=== PATIENT | female | born 1985 | race Caucasian/White ===

== ENCOUNTER 2016-07-29 16:51 | Inpatient (IN) | payer OTHER ==
[2016-07-29] VITALS (12 sets, daily range): BP systolic 115–137; BP diastolic 70–93; PULSE 63–98; RESP 18; TEMP 97.4–97.8
[~2016-07-29 16:51] MED LIST: DIPHTH/TETANUS/ACEL PERTUSSIS (BOOSTER) 0.5 ML VIAL/PFS IM ONE; DOCO200C PO; MEASLES, MUMPS, RUBELLA VACCINE 0.5 ML VIAL SQ ONE
--- NOTE | 2016-07-29 17:54 | PD ---
HPI Chief Complaint Contractions Date Seen: July 29, 2016 Travel History International Travel<30 Days: No Contact w/Intl Traveler<30Days: No Known Affected Area: No History of Present Illness HPI Patient is 30-year-old white female at [address] Campoverde's who is here for contractions. She saw Dr. Campoverde in the office earlier today was checked and said she was 2 cm. Denies bleeding or ruptured membranes. Heart rate tracing is reactive and she is doug of 2-3 minutes that she says are quite painful. Para: 1 : 2 History Obstetric History Obstetric History One vaginal delivery Social History Alcohol Use: No Tobacco Use: No Substance Abuse: No Allergies-Medications (Allergen,Severity, Reaction): Coded Allergies: No Known Allergies (Unverified , 03/07/13) Home Meds Reported Medications Docosahexaenoic Acid ( Dha)200 Mg [id number] Mg PO 03/07/13 Review of Systems General / Constitutional: No: Fever, Weight Gain, Chills, Other Eyes: No: Diploplia, Blurred Vision, Visual changes, Pain, Photophobia HENT: No: Headaches, Vertigo, Lightheadedness Cardiovascular: No: Irregular Rhythm, Chest Pain or Discomfort, Palpitations, Tachycardia, Syncope, Varicosities, Edema, Cyanosis Respiratory: No: Cough, Short of Breath, Other Gastrointestinal: No: Nausea, Vomiting, Diarrhea Genitourinary: No: Decreased Urinary Output, Oliguria Musculoskeletal: No: Limited ROM, Weakness, Cramping, Edema, Pain Skin: No Rash, No Itching, No Dryness, No Lumps, No Change in Pigmentation, No Change in Nails, No Alopecia, No Lesions Neurologic: No: Weakness, Dizziness, Syncope, Focal Abnormalities, Coordination Problem, Headache, Slurred Speech, Seizures Psychiatric: No: Depression, Suicidal Ideations, Homicidal Ideation Endocrine: No: Heat Intolerance, Cold Intolerance, Polydipsia, Polyuria, Other Physical Exam Narrative GENERAL: Well-nourished, well-developed patient. SKIN: Warm and dry. HEAD: Normocephalic and atraumatic. EYES: No scleral icterus. No injection or drainage. ENT: No nasal drainage noted. Mucous membranes pink. Airway patent. NECK: Supple, trachea midline. No JVD. CARDIOVASCULAR: Regular rate and rhythm without murmurs, gallops, or rubs. RESPIRATORY: Breath sounds equal bilaterally. No accessory muscle use. BREASTS: Bilateral exam showed no masses , no retractions, no nipple discharge. ABDOMEN/GI: Abdomen soft, non-tender, bowel sounds present, no rebound, no guarding Gravid to [-39] weeks size Fundal Height: [39-] GENITOURINARY: External Genitalia: intact and normal in appearance BUS glands: [-] Cervix: [-] Dilatation: [4-] Effacement: [-80] Station: [-1] Presentation: [vtx-] Membranes: [intact ] Uterine Contractions: [q 2 min-] FHT's: Category: [1-] Baseline: [144-] Reactive: [-yes] Variability: [-mod] Decels: [none-] EXTREMITIES: No cyanosis or edema. BACK: Nontender without obvious deformity. No CVA tenderness. NEUROLOGICAL: Awake and alert. Motor and sensory grossly within normal limits. Five out of 5 muscle strength in all muscle groups. Normal speech. MDM Interpretation(s) This patient is 30-year-old white female at 39 weeks presents complaining of contractions. She was checked in the office earlier today was 2 cm. She is now 4 cm 80% and head is low at -1 cervix is very posterior this time. heart rate tracing is reactive and she is doug every 2-3 minutes with pain. Plan Patient is in early labor at this time will admit for labor management. We'll discuss with Dr. Campoverde is evaluation advisor for the [facility] Diagnosis Diagnosis: Primary Impression: Uterine contractions during Condition: Stable Ez Yang II, MD July 29, 2016 17:54
[2016-07-29] MEDS ORDERED: LACTATED RINGER'S 1000 ML INJ 1,000 ML IV PRN (17:56)
[2016-07-29] MEDS ORDERED: LACTATED RINGER'S 1000 ML INJ 1,000 ML IV SCH (17:56)
--- NOTE | 2016-07-29 17:59 | HHI.HP ---
History & Physical H&P Patient Name: Dianna Ann Unit Number: [id number] Date of : 1985 Patient Status: Registered Emergency Room Attending Doctor: Ez Yang II, MD HPI HPI Chief Complaint Contractions Date Seen: July 29, 2016 Travel History International Travel<30 Days: No Contact w/Intl Traveler<30Days: No Known Affected Area: No History of Present Illness HPI Patient is 30-year-old white female at [address] Campoverde's who is here for contractions. She saw Dr. Campoverde in the office earlier today was checked and said she was 2 cm. Denies bleeding or ruptured membranes. Heart rate tracing is reactive and she is doug of 2-3 minutes that she says are quite painful. Para: 1 : 2 History (Limited) History Obstetric History Obstetric History One vaginal delivery Social History Alcohol Use: No Tobacco Use: No Substance Abuse: No Allergies-Medications Allergies-Medications (Allergen,Severity, Reaction): Coded Allergies: No Known Allergies (Unverified , 03/07/13) Home Meds Reported Medications Docosahexaenoic Acid ( Dha)200 Mg [id number] Mg PO 03/07/13 ROS Review of Systems General / Constitutional: No: Fever, Weight Gain, Chills, Other Eyes: No: Diploplia, Blurred Vision, Visual changes, Pain, Photophobia HENT: No: Headaches, Vertigo, Lightheadedness Cardiovascular: No: Irregular Rhythm, Chest Pain or Discomfort, Palpitations, Tachycardia, Syncope, Varicosities, Edema, Cyanosis Respiratory: No: Cough, Short of Breath, Other Gastrointestinal: No: Nausea, Vomiting, Diarrhea Genitourinary: No: Decreased Urinary Output, Oliguria Musculoskeletal: No: Limited ROM, Weakness, Cramping, Edema, Pain Skin: No Rash, No Itching, No Dryness, No Lumps, No Change in Pigmentation, No Change in Nails, No Alopecia, No Lesions Neurologic: No: Weakness, Dizziness, Syncope, Focal Abnormalities, Coordination Problem, Headache, Slurred Speech, Seizures Psychiatric: No: Depression, Suicidal Ideations, Homicidal Ideation Endocrine: No: Heat Intolerance, Cold Intolerance, Polydipsia, Polyuria, Other Physical Exam Physical Exam Narrative GENERAL: Well-nourished, well-developed patient. SKIN: Warm and dry. HEAD: Normocephalic and atraumatic. EYES: No scleral icterus. No injection or drainage. ENT: No nasal drainage noted. Mucous membranes pink. Airway patent. NECK: Supple, trachea midline. No JVD. CARDIOVASCULAR: Regular rate and rhythm without murmurs, gallops, or rubs. RESPIRATORY: Breath sounds equal bilaterally. No accessory muscle use. BREASTS: Bilateral exam showed no masses , no retractions, no nipple discharge. ABDOMEN/GI: Abdomen soft, non-tender, bowel sounds present, no rebound, no guarding Gravid to [-39] weeks size Fundal Height: [39-] GENITOURINARY: External Genitalia: intact and normal in appearance BUS glands: [-] Cervix: [-] Dilatation: [4-] Effacement: [-80] Station: [-1] Presentation: [vtx-] Membranes: [intact ] Uterine Contractions: [q 2 min-] FHT's: Category: [1-] Baseline: [144-] Reactive: [-yes] Variability: [-mod] Decels: [none-] EXTREMITIES: No cyanosis or edema. BACK: Nontender without obvious deformity. No CVA tenderness. NEUROLOGICAL: Awake and alert. Motor and sensory grossly within normal limits. Five out of 5 muscle strength in all muscle groups. Normal speech. Data Data [facility] Interpretation(s) This patient is 30-year-old white female at 39 weeks presents complaining of contractions. She was checked in the office earlier today was 2 cm. She is now 4 cm 80% and head is low at -1 cervix is very posterior this time. heart rate tracing is reactive and she is doug every 2-3 minutes with pain. Plan Patient is in early labor at this time will admit for labor management. We'll discuss with Dr. 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
[2016-07-29] MEDS ORDERED: MINERAL OIL 10 ML VIAL TOPICAL PRN (18:00)
[2016-07-29] MEDS ORDERED: SODIUM CHLORID 0.9% 500 ML INJ 500 ML IV PRN (18:00)
[2016-07-29] MEDS ORDERED: LIDOCAINE HCL 1% 50 ML VIAL INFIL PRN (18:00)
[2016-07-29] MEDS ORDERED: CITRIC ACID-SODIUM CITRATE LIQ 30 ML UDC PO SCH (18:00)
[2016-07-29] MEDS ORDERED: OXYTOCIN 30 UNITS-500ML PREMIX 500 ML IV ONE ×2 (18:00→20:45)
[2016-07-29] MEDS ORDERED: LIDOCAINE HCL 1% 50 ML VIAL I-DERMAL PRN (18:00)
[2016-07-29] MEDS ORDERED: SODIUM CHLOR 0.9% 1000 ML INJ 1,000 ML IV PRN (18:16)
[2016-07-29] MEDS ORDERED: ONDANSETRON HCL 4 MG/2 ML VIAL ONE (19:17)
[2016-07-29] MEDS ORDERED: fentaNYL 2MCG-BUPIV 0.125% INJ 100 ML ONE (19:21)
[2016-07-29 19:23] LABS: AUTOMATED NEUTROPHIL # 11.7 TH/MM3 (1.8-7.7); BASOPHIL # 0.1 TH/MM3 (0-0.2); BASOPHIL % 0.3 % (0.0-2.0); EOSINOPHIL # 0.2 TH/MM3 (0-0.4); EOSINOPHIL % 1.1 % (0.0-4.0); HEMATOCRIT 37.7 % (35.0-46.0); HEMO FLAGS DIFF FINAL; LYMPH % 17.2 % (9.0-44.0); LYMPHOCYTE # 2.7 TH/MM3 (1.0-4.8); MEAN CELL VOLUME 87.2 FL (80.0-100.0); MEAN CORPUSCULAR HEMOGLOBIN 30.1 PG (27.0-34.0); MEAN CORPUSCULAR HGB CONC 34.5 % (32.0-36.0); MONO % 5.6 % (0.0-8.0); NEUT % 75.8 % (16.0-70.0); PLATELET COUNT 226 TH/MM3 (150-450); RED BLOOD COUNT 4.32 MIL/MM3 (4.00-5.30); RED CELL DISTRIBUTION WIDTH 13.5 % (11.6-17.2); WHITE BLOOD COUNT 15.4 TH/MM3 (4.0-11.0)
[2016-07-29 19:27] LABS: BACTERIA, URINE RARE /hpf; BLOOD, URINE MOD (NEG); COMMENT (UR) CULT NOT INDICATED; CULTURE IF INDICATED CULT NOT INDICATED; GLUCOSE,URINE NEG (NEG); KETONE, URINE 40 mg/dL (NEG); MUCUS URINE FEW /lpf (OCC); NITRITE,URINE NEG (NEG); PH, URINE 6.5 (5.0-8.5); SQUAMOUS EPITHELIAL CELL URINE 7 /hpf (0-5); URINE COLOR YELLOW (YELLW/STRAW)
--- NOTE | 2016-07-29 20:30 | PD.OB.DELI ---
Anesthesia: Epidural Episiotomy: None Vaginal Delivery: Normal Presentation: Occiput anterior Infant: Male One Minute : 8 Five Minute : 9 Placenta: Spontaneous delivery Laceration: No lacerations (compound hand presentation and cord loop at shoulder) Nikkie Campoverde MD July 29, 2016 20:30
[2016-07-29] MEDS ORDERED: SODIUM CHLORIDE 0.9% FLUSH 10 ML FLUSH IV FLUSH PRN (20:45)
[2016-07-29] MEDS ORDERED: ZOLPIDEM TARTRATE 5 MG TAB PO PRN (20:45)
[2016-07-29] MEDS ORDERED: ONDANSETRON ODT 4 MG TAB PO PRN (20:45)
[2016-07-29] MEDS ORDERED: ACETAMINOPHEN 325 MG TAB PO PRN (20:45)
[2016-07-29] MEDS ORDERED: WITCH HAZEL 50%/GLYCERIN 12.5% 40 PAD JAR TOPICAL PRN (20:45)
[2016-07-29] MEDS ORDERED: ALUMINUM/MAGNESIUM/SIMETH 30 ML CUP PO PRN (20:45)
[2016-07-29] MEDS: SODIUM CHLORIDE 0.9% FLUSH 10 ML FLUSH IV FLUSH SCH (21:18)
[2016-07-30] VITALS: BP 118/60; PULSE 82; RESP 18; TEMP 97.8
[2016-07-30] MEDS: IBUPROFEN 600 MG TAB PO PRN ×4 (02:26→21:34)
[2016-07-30 02:32] VITALS: RESP 18
[2016-07-30 08:00] VITALS: BP 125/81; PULSE 69; RESP 18; TEMP 98.7; O2SAT 99
--- NOTE | 2016-07-30 08:32 | HHI.OB ---
Subjective Post Day: 1 Remarks Doing well, Baby is good Pain is well controlled Objective Vitals/I&O Vital Signs Date Time Temp Pulse Resp B/P Pulse Ox O2 Delivery O2 Flow Rate FiO2 07/30/16 02:32 18 07/30/16 00:00 97.8 82 18 07/30/16 00:00 118/60 07/29/16 21:41 18 07/29/16 21:30 98 124/78 07/29/16 21:30 97.8 07/29/16 21:30 18 07/29/16 21:15 79 18 124/89 07/29/16 21:01 96 115/83 07/29/16 21:00 18 07/29/16 20:45 77 122/70 07/29/16 20:33 89 18 129/74 07/29/16 20:32 97.5 07/29/16 19:50 70 07/29/16 19:40 76 07/29/16 19:32 63 132/81 07/29/16 18:34 97.4 07/29/16 18:34 18 07/29/16 18:34 70 137/93 Objective Remarks GENERAL: Well-nourished, well-developed patient. CARDIOVASCULAR: Regular rate and rhythm without murmurs, gallops, or rubs. RESPIRATORY: Breath sounds equal bilaterally. No accessory muscle use. ABDOMEN/GI: Abdomen soft, non-tender. Fundus: Firm, non-tender at umbilicus. GENITOURINARY: Light to moderate bleeding. EXTREMITIES: No cyanosis or edema, non-tender, without signs of DVT. Medications and IVs Current Medications Medications (Trade) Dose Ordered Sig/Eleanor Route Start Time Stop Time Status Last Admin (NS Flush) 2 ml BID IV FLUSH 07/29/16 21:00 07/29/16 21:18 (NS Flush) 2 ml UNSCH PRN IV FLUSH 07/29/16 20:45 (Tylenol) 650 mg Q4H PRN PO 07/29/16 20:45 (Motrin) 600 mg Q6H PRN PO 07/29/16 20:45 07/30/16 08:14 (Americaine 20% Top Spr) 1 spray Q4H PRN TOPICAL 07/29/16 20:45 (Tucks Pads) 1 applic QID PRN TOPICAL 07/29/16 20:45 (My-Colace) 2 tab Q12H PRN PO 07/29/16 20:45 (Ambien) 5 mg HS PRN PO 07/29/16 20:45 (Mag-Al Plus Susp Liq) 15 ml Q8H PRN PO 07/29/16 20:45 (Zofran Odt) 4 mg Q6H PRN PO 07/29/16 20:45 Assessment/Plan Assessment and Plan PPD#1 Doing well Routine care Jm Dodson MD July 30, 2016 08:32
[2016-07-30 09:00] VITALS: BP 125/81; PULSE 69; RESP 18; TEMP 98.2
--- NOTE | 2016-07-30 10:10 | HHI.DCPOC ---
Discharge Care Plan Diagnosis: (1) Normal vaginal delivery Report Symptoms to Your Doctor -Temperate above 100.5 degrees -Redness, of incision or excessive or foul smelling drainage -Unusual pain or calf pain -Increased vaginal bleeding -Painful or difficulty urinating -Feelings of extreme sadness or anxiety after 2 weeks Goals to Promote Your Health * To prevent worsening of your condition and complications * To maintain your health at the optimal level Directions to Meet Your Goals Take your medications as prescribed Follow your dietary instruction Follow activity as directed Ensure plenty of rest for recovery Drink fluids for hydration Keep your appointments as scheduled Take your immunizations and boosters as scheduled If your symptoms worsen call your PCP, if no PCP go to Urgent Care Center or Emergency Room Smoking is Dangerous to Your Health. Avoid second hand smoke Call the 24-hour crisis hotline for domestic abuse at Karina Nelson July 30, 2016 10:10
[2016-07-30] MEDS ORDERED: ACETAMINOPHEN/HYDROcodone 325 MG/5 MG TAB PO SCH (13:15)
[2016-07-30] MEDS: BENZOCAINE 20% TOPICAL SPRAY 60 ML CAN TOPICAL PRN (15:01)
[2016-07-30] MEDS: ACETAMINOPHEN/HYDROcodone 325 MG/5 MG TAB PO PRN (21:34)
[2016-07-30] MEDS: DOCUSATE SODIUM 50 MG/SENNA 8.6 MG TAB PO PRN (21:34)
[2016-07-31] MEDS: ACETAMINOPHEN/HYDROcodone 325 MG/5 MG TAB PO PRN ×2 (04:49→10:59)
[2016-07-31] MEDS: IBUPROFEN 600 MG TAB PO PRN ×2 (04:49→10:58)
[2016-07-31 07:30] VITALS: BP 118/80; PULSE 72; RESP 16; TEMP 98.4
[2016-07-31] MEDS: SODIUM CHLORIDE 0.9% FLUSH 10 ML FLUSH IV FLUSH SCH (09:00)
[2016-07-31] MEDS: BENZOCAINE 20% TOPICAL SPRAY 60 ML CAN TOPICAL PRN (10:58)
[2016-07-31] MEDS: DOCUSATE SODIUM 50 MG/SENNA 8.6 MG TAB PO PRN (10:58)
--- NOTE | 2016-07-31 12:05 | HHI.OB ---
Subjective Post Day: 2 Remarks Doing well, Baby is good Pain is well controlled. Objective Vitals/I&O Vital Signs Date Time Temp Pulse Resp B/P Pulse Ox O2 Delivery O2 Flow Rate FiO2 07/31/16 07:30 72 118/80 07/31/16 07:30 98.4 16 Objective Remarks GENERAL: Well-nourished, well-developed patient. CARDIOVASCULAR: Regular rate and rhythm without murmurs, gallops, or rubs. RESPIRATORY: Breath sounds equal bilaterally. No accessory muscle use. ABDOMEN/GI: Abdomen soft, non-tender. Fundus: Firm, non-tender at umbilicus. GENITOURINARY: Light to moderate bleeding. EXTREMITIES: No cyanosis or edema, non-tender, without signs of DVT. Medications and IVs Current Medications Medications (Trade) Dose Ordered Sig/Eleanor Route Start Time Stop Time Status Last Admin (NS Flush) 2 ml BID IV FLUSH 07/29/16 21:00 07/29/16 21:18 (NS Flush) 2 ml UNSCH PRN IV FLUSH 07/29/16 20:45 (Tylenol) 650 mg Q4H PRN PO 07/29/16 20:45 (Motrin) 600 mg Q6H PRN PO 07/29/16 20:45 07/31/16 10:58 (Americaine 20% Top Spr) 1 spray Q4H PRN TOPICAL 07/29/16 20:45 07/31/16 10:58 (Tucks Pads) 1 applic QID PRN TOPICAL 07/29/16 20:45 07/30/16 15:01 (My-Colace) 2 tab Q12H PRN PO 07/29/16 20:45 07/31/16 10:58 (Ambien) 5 mg HS PRN PO 07/29/16 20:45 (Mag-Al Plus Susp Liq) 15 ml Q8H PRN PO 07/29/16 20:45 (Zofran Odt) 4 mg Q6H PRN PO 07/29/16 20:45 (Lincoln 5-325 Mg) 1 tab Q6HR PRN PO 07/30/16 18:30 07/31/16 10:59 Assessment/Plan Assessment and Plan PPD#2 Doing well Routine senior care today Jm Dodson MD July 31, 2016 12:05
[2016-07-31] MEDS ORDERED: IBUP-232 PO (12:08)
[2016-07-31] MEDS ORDERED: HYDR-3516 PO (12:08)
== END 2016-07-31 13:25 | disposition home or self-care (01) | DRG 775 ==
LOC: HOBED 16:51 → H2EB 18:09 → H1EA 23:37
PROVIDERS: ADMIT Obstetrics & Gynecology; ATTEND Obstetrics & Gynecology
PROC: 00HU33Z Insertion of Infusion Device into Spinal Canal, Percutaneous Approach (ICD-10-PCS; 2016-07-29)
PROC: 3E0R3CZ (ICD-10-PCS; 2016-07-29)
PROC: 10E0XZZ Delivery of Products of Conception, External Approach (ICD-10-PCS; principal; 2016-07-30)
DX: O32.6XX0 Maternal care for compound presentation, not applicable or unspecified (principal); Z37.0 Single live birth; Z3A.39 39 weeks gestation of pregnancy
CPT/HCPCS: 59025; 81001; 85025; 86900; 86901; 99285; J2405; J2590; J7120